=== PATIENT | male | born 1955 | race Caucasian/White ===

== ENCOUNTER 2017-11-10 03:25 | Inpatient (IN) | payer MEDICAID ==
[~2017-11-10] VITALS: Ht 172.7 cm; Wt 97.6 kg
[2017-11-10 03:29] VITALS: Ht 172.7 cm; Wt 97.6 kg
[2017-11-10 04:11] LABS: PLATELET COUNT 202 x10^3mcL (130-400); RED CELL DISTRIBUTION WIDTH 13.2 % (11.5-14.5)
[2017-11-10 04:29] LABS: CALCIUM 9.5 mg/dL (8.5-10.1); CARBON DIOXIDE 30.5 mmol/L (21-32); CREATININE SERUM 1.3 mg/dL (0.7-1.3); POTASSIUM SERUM 3.9 mmol/L (3.5-5.1)
[2017-11-10 04:33] LABS: ALBUMIN 4.2 g/dL (3.4-5.0); BILIRUBIN TOTAL 0.33 mg/dL (0.20-1.00)
[2017-11-10 04:36] LABS: TOTAL PROTEIN, SERUM 8.4 g/dL (6.4-8.2)
[2017-11-10 05:22] LABS: BAND NEUTROPHIL 16 % (0-10); BASOPHIL 0 % (0-2); MONOCYTE 4 % (0-7); SEGMENTED NEUTROPHILS 73 % (37-75)
[2017-11-10 05:23] LABS: rbc morphology (normal/abnorm) ABNORMAL (NORMAL); tear drop cell (dacryocyte) 1+
[2017-11-10 05:24] LABS: PLATELET MORPHOLOGY GIANT PLATELET SEEN
[2017-11-10 06:55] LABS: UA SPECIFIC GRAVITY >=1.030 (1.005-1.035); microscopic required? YES; urine erythrocyte NEGATIVE (NEGATIVE)
[2017-11-10 09:19] LABS: PHOSPHOROUS 3.6 mg/dL (2.5-4.9)
[2017-11-10 09:22] LABS: CHOLESTEROL/HDL RATIO 5.6
[2017-11-10 09:24] LABS: FREE T4 0.98 ng/dL (0.76-1.46); FREE THYROXINE INDEX 2.8 ug/dL (1.4-4.5); T4(THYROXINE) 8.5 ug/dL (4.7-13.3)
[2017-11-10 09:47] VITALS: BP 131/78
[2017-11-10 09:58] LABS: T3 TOTAL 1.24 ng/mL
[2017-11-10 17:51] VITALS: BP 144/74
[2017-11-10 20:56] VITALS: BP 122/63
[2017-11-11 05:20] VITALS: BP 104/50
[2017-11-11 06:56] LABS: BASOPHIL % 0.5 % (0-2); PLATELET COUNT 165 x10^3mcL (130-400); RED CELL DISTRIBUTION WIDTH 13.2 % (11.5-14.5)
[2017-11-11 07:06] LABS: CALCIUM 7.8 mg/dL (8.5-10.1); CHLORIDE SERUM 108 mmol/L (98-107); CREATININE SERUM 1.2 mg/dL (0.7-1.3); GFR1 > 60 mL/min; GLUCOSE SERUM 109 mg/dL (74-106); MAGNESIUM 1.7 mg/dL (1.8-2.4); PHOSPHOROUS 3.4 mg/dL (2.5-4.9); POTASSIUM SERUM 3.1 mmol/L (3.5-5.1); SODIUM SERUM 143 mmol/L (136-145)
[2017-11-11 07:58] VITALS: BP 108/56
[2017-11-11 11:53] VITALS: BP 150/84
[2017-11-11 17:33] VITALS: BP 137/68
[2017-11-11 21:10] VITALS: BP 112/79
[2017-11-12 05:39] VITALS: BP 144/85
[2017-11-12 06:49] LABS: CARBON DIOXIDE 30.3 mmol/L (21-32); CHLORIDE SERUM 104 mmol/L (98-107); GFR1 > 60 mL/min; GLUCOSE SERUM 103 mg/dL (74-106); POTASSIUM SERUM 3.5 mmol/L (3.5-5.1); SODIUM SERUM 139 mmol/L (136-145)
[2017-11-12 07:04] LABS: BASOPHIL % 0.5 % (0-2); PLATELET COUNT 168 x10^3mcL (130-400); RED CELL DISTRIBUTION WIDTH 12.7 % (11.5-14.5)
[2017-11-12 09:49] VITALS: BP 156/76
[2017-11-12] MEDS ORDERED: LEVAQUIN750 MG PO (12:29)
[2017-11-12 12:30] VITALS: BP 140/71
[2017-11-12] MEDS ORDERED: FLAGYL500 MG PO (12:30)
[2017-11-12 12:44] VITALS: BP 140/71
== END 2017-11-12 16:30 | disposition home or self-care (01) | DRG 720 ==
LOC: ED 03:25 → MU 08:15 → DU 08:15
PROVIDERS: Emergency Medicine; Family Medicine; Internal Medicine
DX: A41.9 Sepsis, unspecified organism (principal); E87.2 Acidosis; K56.7 Ileus, unspecified; K31.84 Gastroparesis; E83.42 Hypomagnesemia; R16.0 Hepatomegaly, not elsewhere classified; K76.0 Fatty (change of) liver, not elsewhere classified; K52.9 Noninfective gastroenteritis and colitis, unspecified; K57.90 Diverticulosis of intestine, part unspecified, without perforation or abscess without bleeding; E87.6 Hypokalemia; E78.5 Hyperlipidemia, unspecified; Z68.33 Body mass index [BMI] 33.0-33.9, adult
CPT/HCPCS: 83880; 84439; J1956; J2405; J2543; J3010; J3475; J3490; J7030; J7120; Q0092; Q9967